=== PATIENT | female | born 1955 | race Caucasian/White ===

== ENCOUNTER → 2024-01-23 13:38 | Outpatient (REF) | payer MEDICARE, OTHER, SELFPAY | LOC: HWRAD 13:38 | PROVIDERS: ATTENDING PHYSICIAN Family Medicine | DX: Z12.31 Encounter for screening mammogram for malignant neoplasm of breast (principal); R94.5 Abnormal results of liver function studies; M81.0 Age-related osteoporosis without current pathological fracture | CPT/HCPCS: 76700; 77063; 77067; 77080 ==